=== PATIENT | female | born 1995 | race Caucasian/White ===

== ENCOUNTER 2024-11-02 18:04 | Inpatient (IN) | payer OTHER ==
[~2024-11-02] VITALS: Ht 170.2 cm; Wt 81.6 kg
[2024-11-02 17:39] VITALS: BP 115/68
[2024-11-02] MEDS ORDERED: BETAMETHASONE ACETATE,SOD PHOS 30 MG/5 ML ML IM STA (18:18)
[2024-11-02] MEDS ORDERED: AMPICILLIN SODIUM 2,000 MG VIAL IV SCH (18:30)
[2024-11-02 19:24] LABS: HEMATOCRIT 36.5 % (36.0-45.00); HEMOGLOBIN 12.5 g/dL (12.0-15.00); MEAN CELL VOLUME 99.4 fL (80.00-100.00); MEAN CORPUSCULAR HGB CONC 34.2 g/dl (32.0-36.0); PLATELET COUNT 186 K/uL (150-450); RED BLOOD COUNT 3.67 M/uL (4.00-6.00); RED CELL DISTRIBUTION WIDTH 13.3 % (11.5-14.5)
[2024-11-02 19:42] LABS: PH,URINE 5.5 (5.0-8.0); URINE APPEARANCE Clear; URINE BILIRRUBIN Negative (NEGATIVE); URINE BLOOD Negative; URINE COLOR Yellow; URINE GLUCOSE Negative (NEGATIVE); URINE LEUKOCYTE Negative; URINE NITRATE Negative; URINE PROTEIN Negative (NEGATIVE); URINE UROBILINOGEN 0.2 E.U./dl
[2024-11-02 19:43] LABS: URINE BACTERIA 15.9 uL (0.0-1933); URINE EPITHELIAL CELLS 2.6 uL (0.0-38.8)
[2024-11-02 19:44] LABS: URINE CAST 0.14 uL (0.0-1.40); URINE KETONE 80 (NEGATIVE); URINE RBC 0.7 uL (0.0-20.8)
[2024-11-02 19:46] LABS: INR < 0.93; PARTIAL THROMBOPLASTIN TIME 26.2 SECONDS (22.0-34.0); PROTHROMBIN TIME 10.1 SECONDS (9.0-11.5)
[2024-11-02 19:52] LABS: BILIRUBIN TOTAL 0.41 mg/dL (0.3-1.2); CALCIUM 7.6 mg/dL (8.5-10.1); CREATININE SERUM 0.65 mg/dL (0.55-1.02); GFR 107.76; GLOBULINA 3.3 G/DL (2.4-3.5); POTASSIUM 3.89 mEq/L (3.5-5.1); TOTAL PROTEIN 6.3 gm/dL (6.4-8.2)
[2024-11-02] MEDS ORDERED: AZITHROMYCIN 500 MG VIAL IV SCH (20:14)
[2024-11-02] MEDS ORDERED: ALL DAY ALLERGY10 MG PO (20:33)
[2024-11-02] MEDS ORDERED: MAGNESIUM SULFATE IN WATER 500 ML IV SCH (20:45)
[2024-11-02] MEDS ORDERED: MAGNESIUM SULFATE IN WATER 4 GM/100 ML PIGGYBACK IV ONE (20:45)
[2024-11-02 23:42] VITALS: BP 105/62
[2024-11-03 03:52] VITALS: BP 102/60; O2SAT 99
[2024-11-03] MEDS ORDERED: RINGERS SOLUTION,LACTATED 1,000 ML IV SCH (08:00)
[2024-11-03 08:32] VITALS: BP 120/68
[2024-11-03 11:20] VITALS: BP 100/60
[2024-11-03 16:00] VITALS: BP 104/63
[2024-11-03 16:37] VITALS: BP 106/71
[2024-11-03] MEDS ORDERED: AZITHROMYCIN 500 MG TABLET PO SCH (17:00)
[2024-11-03] MEDS ORDERED: BETAMETHASONE ACETATE,SOD PHOS 30 MG/5 ML ML IM NR (19:00)
[2024-11-04] VITALS: BP 98/60
[2024-11-04 07:55] VITALS: BP 97/65
[2024-11-04 16:00] VITALS: BP 107/63
[2024-11-05] VITALS: BP 90/60
[2024-11-05 09:00] VITALS: BP 103/64
== END 2024-11-05 10:55 | disposition home or self-care (01) | DRG 832 ==
LOC: LDR 18:04 → OB/GYN 11-03 13:43
PROVIDERS: ADMIT Obstetrics & Gynecology; ATTEND Obstetrics & Gynecology
PROC: 4A1HXCZ Monitoring of Products of Conception, Cardiac Rate, External Approach (ICD-10-PCS; principal; 2024-11-02)
PROC: BY4FZZZ Ultrasonography of Third Trimester, Single Fetus (ICD-10-PCS; 2024-11-03)
PROC: BU4CZZZ Ultrasonography of Uterus and Ovaries (ICD-10-PCS; 2024-11-03)
DX: O47.03 False labor before 37 completed weeks of gestation, third trimester (principal); O26.873 Cervical shortening, third trimester; O26.853 Spotting complicating pregnancy, third trimester; O35.3XX0 Maternal care for (suspected) damage to fetus from viral disease in mother, not applicable or unspecified; O36.8130 Decreased fetal movements, third trimester, not applicable or unspecified; O42.013 Preterm premature rupture of membranes, onset of labor within 24 hours of rupture, third trimester; Z3A.29 29 weeks gestation of pregnancy